=== PATIENT | female | born 1965 | race Caucasian/White ===

== ENCOUNTER 2020-02-27 12:05 | Emergency (ER) | payer OTHER ==
[~2020-02-27] VITALS: Ht 167.6 cm; Wt 109.4 kg
[2020-02-27 12:25] LABS: BASOPHILS # (AUTO) 0.04 x10^3/uL (0-0.1); BASOPHILS % (AUTO) 0 % (0-1); EOSINOPHILS # (AUTO) 0.27 x10^3/uL (0-0.4); EOSINOPHILS % (AUTO) 3 % (1-7); LYMPHOCYTES # (AUTO) 3.28 x10^3/uL (1-3.4); LYMPHOCYTES % (AUTO) 33 % (22-44); MD NO; MEAN CORPUSCULAR HEMOGLOBIN 28.5 pg (27.0-34.8); MEAN CORPUSCULAR HGB CONC 32.7 g/dL (32.4-35.8); MEAN CORPUSCULAR VOLUME 87.2 fL (80-100); MEAN PLATELET VOLUME 9.4 fL (7.4-10.4); MONOCYTES # (AUTO) 0.64 x10^3/uL (0.2-0.8); MONOCYTES % (AUTO) 6 % (2-9); NEUTROPHILS % (AUTO) 57 % (42-75); PLATELET COUNT 197 x10^3/uL (130-400); RED BLOOD COUNT 5.41 x10^6/uL (3.82-5.3); RED CELL DISTRIBUTION WIDTH 13.5 % (9.6-15.2)
[2020-02-27] MEDS ORDERED: SODIUM CHLORIDE FLUSH 10ML SYR IVF ONE (12:30)
[2020-02-27 12:32] LABS: INTERNATIONAL NORMALIZED RATIO 1.08 (0.93-1.1); PROTHROMBIN TIME 11.1 Seconds (9.6-11.5)
[2020-02-27 12:35] LABS: ALANINE AMINOTRANSFERASE 39 U/L (12-78); ALBUMIN 3.9 g/dL (3.4-5.0); ANION GAP 6 mmol/L (5-15); CALCIUM 9.3 mg/dL (8.5-10.1); CHLORIDE 109 mmol/L (98-107)
[2020-02-27] MEDS ORDERED: OMNIPAQUE 350 MG/ML, 100ML BOTTLE ONE (12:36)
[2020-02-27 12:37] LABS: ALKALINE PHOSPHATASE 61 U/L (45-117); BILIRUBIN,TOTAL 1.2 mg/dL (0.2-1.0); TOTAL PROTEIN 7.7 g/dL (6.4-8.2)
[2020-02-27] MEDS ORDERED: ALTEPLASE IV ONE ×2 (13:00)
--- NOTE | 2020-02-27 13:03 | NUR ---
Called to have films pushed through to [facility] for interventional radiologist.
[2020-02-27] MEDS ORDERED: ALTEPLASE 10 MG in SYRINGE 1 EA IVPush STA (13:07)
[2020-02-27] MEDS ORDERED: ALTEPLASE IV STA (13:08)
--- NOTE | 2020-02-27 13:49 | NUR ---
LATE ENTRY: BIB [facility] FOR NEW ONSET L SIDED PARALYSIS, R GAZE @1130AM, WITNESSED COLLAPSE BY SECURITY AT PTS WORK, CODE NEURO CALLED @1148, PT TO CT @1211. NEURO AT BEDSIDE AND TPA INITIATED @1315, BOLUS 9MG WITH 81MG INFUSION. PTS AT BEDSIDE. PT TO BE TRANSPORTED TO [facility] FOR IR. REPORT TO NELSON AT [facility] IR AND ROBERT IN [facility] ED.
[2020-02-27 14:03] VITALS: BP 151/80
--- NOTE | 2020-02-27 14:06 | NUR ---
PTS JEWELRY, PHONE, WALLET AND SHOES GIVEN TO PTS
--- NOTE | 2020-02-27 14:19 | NUR ---
REPORT TO PETER IBANEZ, C[facility] FL[facility]. PT TO HAVE GROUND TRANSFER NOW THAT TPA IS DONE INFUSING.
[2020-02-27] MEDS ORDERED: ALTEPLASE 1 ML ONE (14:39)
[2020-02-27] MEDS ORDERED: AMIODARONE 50 MG/ML, 3ML ONE (15:00)
== END 2020-02-27 14:40 | disposition short-term general hospital (02) ==
LOC: EDBD 12:05 → ED 13:13
DX: I63.311 Cerebral infarction due to thrombosis of right middle cerebral artery (principal); I48.91 Unspecified atrial fibrillation; R53.1 Weakness; R29.810 Facial weakness; R06.9 Unspecified abnormalities of breathing
CPT/HCPCS: 36415; 37195; 70450; 70496; 70498; 71045; 80047; 80053; 85025; 85610; 93005; 99291; J0282; J2997; Q9967